=== PATIENT | male | born 1995 | race Caucasian/White ===

== ENCOUNTER 2019-01-13 23:32 | Emergency (ER) | payer MEDICAID ==
[~2019-01-13] VITALS: Ht 167.6 cm; Wt 73.5 kg
[2019-01-13 23:41] VITALS: Ht 167.6 cm; Wt 73.5 kg
[2019-01-14 01:46] VITALS: BP 134/54
== END 2019-01-14 01:46 | disposition home or self-care (01) ==
LOC: ED 23:32
DX: S01.01XA Laceration without foreign body of scalp, initial encounter (principal); S01.412A Laceration without foreign body of left cheek and temporomandibular area, initial encounter; S00.83XA Contusion of other part of head, initial encounter; S06.0X9A Concussion with loss of consciousness of unspecified duration, initial encounter; S06.9X9A Unspecified intracranial injury with loss of consciousness of unspecified duration, initial encounter; Y04.8XXA Assault by other bodily force, initial encounter; Y93.89 Activity, other specified; Y92.89 Other specified places as the place of occurrence of the external cause; Y99.8 Other external cause status
CPT/HCPCS: 90715; J1885; J2001; Q0092; Q0162

== ENCOUNTER 2019-01-17 11:59 | Emergency (ER) | payer MEDICAID ==
[~2019-01-17] VITALS: Ht 167.6 cm; Wt 74.4 kg
[2019-01-17 12:09] VITALS: BP 137/78; Ht 167.6 cm; Wt 74.4 kg
== END 2019-01-17 12:52 | disposition home or self-care (01) ==
LOC: ED 11:59
DX: S01.01XA Laceration without foreign body of scalp, initial encounter (principal); X58.XXXD Exposure to other specified factors, subsequent encounter

== ENCOUNTER 2019-01-24 17:35 | Emergency (ER) | payer MEDICAID | END 2019-01-24 19:10 | disposition home or self-care (01) | LOC: ED 17:35 ==

== ENCOUNTER 2019-09-03 19:35 | Emergency (ER) | payer OTHER ==
[~2019-09-03] VITALS: Ht 170.2 cm; Wt 86.2 kg
[2019-09-03 19:39] VITALS: Ht 170.2 cm; Wt 86.2 kg
[2019-09-03 20:08] LABS: BASOPHIL % 0.6 % (0-2); PLATELET COUNT 241 x10^3mcL (130-400); RED CELL DISTRIBUTION WIDTH 12.7 % (11.5-14.5)
[2019-09-03 20:10] LABS: CALCIUM 8.7 mg/dL (8.5-10.1); CHLORIDE SERUM 104 mmol/L (98-107); CREATININE SERUM 0.9 mg/dL (0.7-1.3); GFR1 > 60 mL/min; GLUCOSE SERUM 88 mg/dL (74-106); POTASSIUM SERUM 4.3 mmol/L (3.5-5.1); SODIUM SERUM 141 mmol/L (136-145)
[2019-09-03 20:13] LABS: ALKALINE PHOSPHATASE 148 U/L (46-116); ALT/SGPT 177 U/L (16-63); AST/SGOT 44 U/L (15-37); BILIRUBIN TOTAL 0.3 mg/dL (0.20-1.00); TOTAL PROTEIN, SERUM 7.9 g/dL (6.4-8.2)
[2019-09-04] VITALS: BP 119/68
== END 2019-09-04 | disposition home or self-care (01) ==
LOC: ED 19:35
DX: R10.31 Right lower quadrant pain (principal); R19.7 Diarrhea, unspecified
CPT/HCPCS: J1885; J2270; J2405; Q9967